=== PATIENT | male | born 1975 | race Caucasian/White ===

== ENCOUNTER 2016-05-23 13:21 | Observation (INO) | payer MEDICARE ==
[~2016-05-23] VITALS: Ht 182.9 cm; Wt 122.5 kg
--- NOTE | 2016-05-23 13:42 | NUR ---
TRANSFER FROM ADMISSIONS BY W/C. OREINTED TO ROOM. CALL LIGHT IN REACH. WILL CONT. PLAN OF CARE.
[2016-05-23] MEDS ORDERED: PAXIL10 MG PO (14:02)
[2016-05-23] MEDS ORDERED: CYMBALTA60 MG PO (14:04)
[2016-05-23] MEDS ORDERED: ZYLOPRIM300 MG PO (14:04)
[2016-05-23] MEDS ORDERED: VALIUM10 MG PO (14:05)
[2016-05-23] MEDS ORDERED: HYDROCODONE-APA1 TAB PO (14:05)
[2016-05-23 14:08] VITALS: BP 139/82; Ht 182.9 cm; Wt 122.5 kg
[2016-05-23 15:01] VITALS: BP 146/96
--- NOTE | 2016-05-23 15:18 | NUR ---
HUERTA CATH INSERTED BY NS WITH 16 FR CATH AND 10CC BULB. 700CC URINE OP NOTED.
[2016-05-23 16:47] LABS: CKMB 0.4 U/L (0.0-3.6); CREATINE KINASE 37 UL (21-232); PRO BNP 17 pg/mL (0-125)
[2016-05-23 16:53] LABS: TROPONIN-I < 0.017 ng/mL (0.000-0.060)
--- NOTE | 2016-05-23 19:32 | NUR ---
ASSESSMENT COMPLETE, A&O, 02 AT 2 LITER VIA NC, RESPERATIONS EVEN. IV TO LEFT HAND SL, SITE CLEAN AND DRY. HUERTA DRAINING TO GRAVITY. PT ASKING TO HAVE HUERTA TAKEN OUT, EXPLAINED THAT THE HUERTA WAS PLACED BECAUSE HE WAS RECIEVING LASIX AND ITS EASIER TO KEEP TRACK OF OUT PUT AND IT SHOULD BE EASIER ON PT SO THAT HE DOESNT HAVE TO GET UP TO BR OFTEN, HOWEVER INFORMED PT THAT I WILL LOOK OVER HIS ORDERS AND WILL SEE IF WE CAN TAKE IT OUT.
[2016-05-23 20:28] LABS: CKMB 0.2 U/L (0.0-3.6); CREATINE KINASE 30 UL (21-232); TROPONIN-I < 0.017 ng/mL (0.000-0.060)
--- NOTE | 2016-05-23 20:32 | NUR ---
HUERTA CATH REMOVED AT PTS INSISTANCE. 10 CC NS REMOVED FROM BULB, TIP INTACT, PT STATED THAT HE WAS UNABLE TO HAVE A BOWEL MOVEMENT BECAUSE THE CATHETER WAS CAUSING TOO MUCH PRESSURE WHEN HE TRIES TO PUSH. INFORMED PT THAT HE WILL HAVE TO USE A URINAL SO THAT WE CAN KEEP TRACK OF ACCURATE OUT PUT VOLUMES, PT AND AT BED SIDE STATED UNDERSTANDING. WILL CONT TO MONITOR.
[2016-05-23 20:34] VITALS: BP 130/68
--- NOTE | 2016-05-24 00:02 | NUR ---
AMBULATING IN PELLETIER, GIAT STEADY.
[2016-05-24 00:26] VITALS: BP 117/72
[2016-05-24 02:25] LABS: BASOPHILS 0.2 % (0.0-2.0); EOSINOPHILS 0.8 % (0-7); HEMATOCRIT 45.5 % (42.0-54.0); HEMOGLOBIN 15.4 g/dL (13.5-17.5); IMMATURE GRANULOCYTES 0.2 % (0-5); LYMPHOCYTES 16.9 % (15-50); MCH 30.5 pg (26.0-34.0); MCHC 33.8 g/dL (31.0-37.0); MCV 90.1 fL (80.0-100.0); MEAN PLATELET VOLUME 8.9 fL (7.4-10.4); MONOCYTES 8.7 % (2-11); NEUTROPHILS 73.2 % (40-80); PLATELET COUNT 190 10x3/uL (130-400); RBC 5.05 10x6/uL (4.20-6.10); RDW 12.9 % (11.5-14.5); WBC 9.7 10x3/uL (4.8-10.8)
[2016-05-24 02:53] LABS: ALBUMIN 3.8 g/dL (3.4-5.0); ALKALINE PHOSPHATASE 89 U/L (46-116); ALT (SGPT) 68 U/L (10-68); BILIRUBIN - TOTAL 0.45 mg/dL (0.2-1.3); CALCIUM 9.3 mg/dL (8.5-10.1); CARBON DIOXIDE 28.3 mmol/L (21.0-32.0); CHLORIDE - SERUM 96 mmol/L (98-107); CKMB 0.2 U/L (0.0-3.6); CREATINE KINASE 36 UL (21-232); CREATININE - SERUM 1.2 mg/dL (0.6-1.3); POTASSIUM - SERUM 3.5 mmol/L (3.5-5.1); PROTEIN - SERUM 8.6 g/dL (6.4-8.2); SODIUM 135 mmol/L (136-145); UREA NITROGEN 10 mg/dL (7-18); eGFR NON AFRICAN AMERICAN 70 mL/min (90-120)
[2016-05-24 02:55] LABS: CALC OSMOLALITY 272 mosm/kg (275-300); GLUCOSE 175 mg/dL (74-106); TROPONIN-I < 0.017 ng/mL (0.000-0.060)
[2016-05-24 04:19] VITALS: BP 135/80
--- NOTE | 2016-05-24 04:38 | NUR ---
[employer] FUN[employer] DIRECTOR AT BED SIDE TO OBTAIN VITALS, NO NEEDS VOICED.
--- NOTE | 2016-05-24 07:30 | NUR ---
RECEIVED PT IN BED AAOX4 RESP UNLABORED DENIES ANY NEEDS OR DISCOMFORT AT THIS TIME NAD NOTED
[2016-05-24 07:58] VITALS: BP 129/78
[2016-05-24] MEDS ORDERED: LISINOPRIL2.5 MG PO (09:48)
[2016-05-24] MEDS ORDERED: METFORMIN HCL500 M1 PO (09:48)
[2016-05-24] MEDS ORDERED: ZOCOR10 MG PO (09:49)
[2016-05-24] MEDS ORDERED: LASIX20 MG PO (09:50)
[2016-05-24] MEDS ORDERED: COREG 3.1253.125 MG PO (09:50)
[2016-05-24 11:54] VITALS: BP 130/91
--- NOTE | 2016-05-24 14:15 | NUR ---
REVIEWED DISCHARGE INSTRUCTIONS WITH PT AND BOTH STATE UNDERSTANDING COPY GIVEN TO PT SALINE LOCK DCD WITH IV CATHETER INTACT SITE FREE OF REDNESS OR EDEMA PT DISCHARGED HOME IN STABLE CONDITION LEFT UNIT VIA W/C WITH ALL PERSONAL BELONGINGS
== END 2016-05-24 14:15 | disposition home or self-care (01) ==
LOC: D.M2 13:21 → OBSVTIME 13:22 → D.M2 05-24 14:15
PROVIDERS: ADMIT Family Medicine
DX: J81.0 Acute pulmonary edema (principal); I10 Essential (primary) hypertension; Z87.820 Personal history of traumatic brain injury; F07.0 Personality change due to known physiological condition; F60.9 Personality disorder, unspecified; E11.9 Type 2 diabetes mellitus without complications; Z87.891 Personal history of nicotine dependence